=== PATIENT | female | born 2000 | race Caucasian/White ===

== ENCOUNTER → 2021-09-21 10:26 | Outpatient (BNVA) | payer OTHER, SELFPAY | PROVIDERS: Family Provider Nurse Practitioner; PCP Nurse Practitioner; Visit Provider Psychiatry & Neurology Psychiatry | DX: F33.1 Major depressive disorder, recurrent, moderate (principal); F41.1 Generalized anxiety disorder; Z79.899 Other long term (current) drug therapy; Z03.89 Encounter for observation for other suspected diseases and conditions ruled out | CPT/HCPCS: 90792; 80053; 80061; 83036; 84443; 85025 ==

== ENCOUNTER 2022-07-24 12:58 | Emergency (ER) | payer OTHER, SELFPAY ==
[2022-07-24 13:03] VITALS: BP 124/82; PULSE 86; RESP 16; TEMP 36.7; O2SAT 98; BMI 31.5
--- NOTE | 2022-07-24 13:17 | US_ITS ---
WS: [id number] EARLY OBSTETRICAL ULTRASOUND (<14 WEEKS). HISTORY: 5 weeks and bleeding COMPARISON: None available. Single intrauterine gestational sac is identified. Sac is along the inferior endometrium. This is an abnormal position. The sac appears smaller than expected for the gestation. [place]-rump length of 0.15 cm, less 6 weeks gestation. Gestational sac diameter corresponds to a of 6 weeks 0 days. C ardiac activity at 77 bpm. Normal size ovaries with no mass. No free fluid. US/US OB <=14 wk fetus w transvag IMPRESSION: 1. Single intrauterine gestation of 6 weeks 0 days based upon the gestational sac. [place]-rump length is less than 6 weeks and there is cardiac activity prese nt. 2. Abnormally positioned gestational sac is very low along the endometrial can al. Probably not viable in this location. Likely pending spontaneous .
--- NOTE | 2022-07-24 13:19 | ED_ITS ---
Documented by User: [email or web address] Drake 07/24/22 16:53 HPI - General: Chief complaint: Vaginal Bleeding Stated complaint: 4 weeks , bleeding Time Seen by Provider: 07/24/22 13:09 History of Present Illness: Patient is a G1, P0 4-week 22-year-old female comes to the ED with vaginal bleeding. Last menstrual period was June 10. Yesterday she started to have some light spotting and today the bleeding got heavier. She has bled through 1 pad in 1.5 to 2 hours. She has some occasional mild pelvic cramping pain that she describes as being mild. Denies any fevers, chills, nausea/vomiting, bladder or bowel symptoms. Associated symptoms: Deny abdominal pain, dysuria, headache(s), nausea or vo miting Review of Systems Const: Denies: fever(s), chills or fatigue Eyes: Denies: change in vision or eye discomfort ENMT: Denies: throat pain, odynophagia, nasal discharge or nasal congestion Card: Denies: chest pain, palpitations, edema, swelling of feet/ankles, dyspnea on exertion or orthopnea Resp: Denies: dyspnea, productive cough or non-productive cough GI: Denies: abdominal pain, nausea, vomiting, diarrhea, constipation or hematochezia : Reports: vaginal bleeding and pelvic pain (Cramping pain); Denies: flank pain, dysuria or hematuria Musc: Denies: neck pain, back pain or extremity swelling Skin/Breast: Denies: rash or new lesions Neuro: Denies: headache(s), numbness in extremities or weakness in extremities [facility] ED PFSH: Medical History Generalized anxiety disorder No pertinent family history Psychiatric care Physical Exam Const: COMMON NORMALS: no acute distress, patient oriented x3, healthy appearing and alert GENERAL APPEARANCE: cooperative and comfortable HENMT: COMMON NORMALS: normocephalic HEAD & SCALP: normocephalic MOUTH: Normal oral and palatal mucosa present THROAT: posterior oropharynx normal and uvula midline Neck/C-Spine: COMMON NORMALS: supple GENERAL: Yes normal visual inspection Resp: COMMON NORMALS: normal respiratory effort, No retractions, No use of accessory muscles and clear to auscultation bilaterally AUSCULTATION: clear t o auscultation bilaterally Cardio: COMMON NORMALS: regular rate, regular rhythm, S1 normal heart sound present, S2 normal heart sound present, No gallops present (Cardio), No clicks present (Cardio), No murmurs present (Cardio) and Peripheral pulses 2+ throughout RATE: regular rate RHYTHM: regular rhythm HEART SOUNDS: S1 normal heart sound present and S2 normal heart sound present PERIPHERAL PULSES: Peripheral pulses 2+ throughout GI: COMMON NORMALS: Normal to inspection, nondistended, normoactive bowel sounds present, Soft to palpation and no masses PALPATION: Yes Soft to palpation and Yes Tenderness to palpation present (GI) (Mild bilateral lower abdominal tenderness) Details: LLQ and RLQ : COMMON NORMALS: Yes no CVA tenderness BLADDER/KIDNEY EXAM: Yes no CVA tenderness Back/Pelvis: COMMON NORMALS: no CVA tenderness Extremity: COMMON NORMALS: normal to inspection Neuro: COMMON NORMALS: patient oriented x3 SENSORIUM/ORIENTATION: Yes alert GAIT: Yes Normal gait present Skin: GENERAL SKIN EXAM: dry skin Course Consultations: Consultation #1: I contacted Dr. Mathew and told her about patient case and ultrasound report. She said patient likely is having an impending spontaneous miscarriage and at this point no intervention needed. She can follow-up with OB provider in the next 1 to 2 days for reevaluation. She said patient can return to the ED if she has bleeding through her 2 pads an hour. Time: 15:58 Vital Signs: Vital signs: Vital Signs Temperature 98.1 F 07/24/22 13:03 Pulse Rate 97 07/24/22 16:13 Respiratory Rate 16 07/24/22 13:03 Blood Pressure 131/91 07/24/22 16:13 Pulse Oximetry 98 07/24/22 16:13 Oxygen Delivery Me thod 07/24/22 14:05 MDM - OB/Uterine Contractions Medical Decision Making Patient is a G1, P0 4-week 22-year-old female comes to the ED with vaginal bleeding. Last menstrual period was June 10. Yesterday she started to have some light spotting and today the bleeding got heavier. She has bled through 1 pad in 1.5 to 2 hours. She has some occasional mild pelvic cramping pain that she describes as being mild. Denies any fevers, chills, nausea/vomiting, bladder or bowel symptoms. Vitals are stable. Exam of patient is benign and she appears nontoxic in no acute distress or pain. CBC, CMP and UA were unremarkable. Beta-hCG was 754. OB ultrasound showed a 6 week gestation single intrauterine . The positioning of the gestational sac was very low and along the endometrial canal. Cervix was closed. Report noted likely impending spontaneous . I contacted Dr. Mathew about patient case and told her about the ultrasound report. She said patient likely is having an impending spontaneous miscarriage and at this point no intervention needed. She can follow-up with OB provider in the next 1 to 2 days for reevaluation. She said patient can return to the ED if she has bleeding through her 2 pads an hour. She is stable for discharge home and diagnosed with a threatened miscarriage. Patient is going to call OB provider get an appointment set up with them in the next 2 to 3 days for reevaluation. She was given strict return to ED precautions. Patient understood and agreed with plan. Lab Data I reviewed the patient's lab results. : 07/24/22 14:45 07/24/22 14:45 Radiology Impressions Obstetrics Ultrasound 07/24/22 13:17 IMPRESSION: 1. Single intrauterine gestation of 6 weeks 0 days based upon the gestational sac. [place]-rump length is less than 6 weeks and there is cardiac activity present. 2. Abnormally positioned gestational sac is very low along the endometrial canal. Probably not viable in this location. Likely pending spontaneous . Laboratory Results WBC 9.5 10^3/uL (4.0-10.0) 07/24/22 14:45 RBC 4.83 10^6/uL (4.1-5.3) 07/24/22 14:45 Hgb 12.9 g/dL (11.5-15.3) 07/24/22 14:45 Hct 41.1 % (37.0-47.0) 07/24/22 14:45 MCV 85.1 fl (81-99) 07/24/22 14:45 MCH 26.7 pg (28.0-34.0) L 07/24/22 14:45 MCHC 31.4 g/dL (30.0-36.0) 07/24/22 14:45 RDW 14.6 % (12.1-15.1) 07/24/22 14:45 Plt Count 372 10^3/cmm (130-400) 07/24/22 14:45 MPV 8.3 fL (7.4-10.4) 07/24/22 14:45 Neut % (Auto) 73.8 % 07/24/22 14:45 Lymph % (Auto) 19.4 % 07/24/22 14:45 [place] % (Auto) 5.2 % 07/24/22 14:45 Eos % (Auto) 0.8 % 07/24/22 14:45 Baso % (Auto) 0.2 % 07/24/22 14:45 Neut # (Auto) 7.00 10^3/uL (1.8-7.7) 07/24/22 14:45 Lymph # (Auto) 1.8 10^3/uL (0.8-4.8) 07/24/22 14:45 Frontier # (Auto) 0.5 10^3/uL (0.2-0.9) 07/24/22 14:45 Eos # (Auto) 0.1 10^3/uL (0.0-0.8) 07/24/22 14:45 Baso # (Auto) 0.0 10^3/uL (0.0-0.1) 07/24/22 14:45 Nucleated RBC % (auto) 0 % 07/24/22 14:45 Nucleated RBCs # 0.0 /100WBC 07/24/22 14:45 Sodium 138 mmol/L (136-145) 07/24/22 14:45 Potassium 4.2 mmol/L (3.5-5.1) 07/24/22 14:45 Chloride 100 mmol/L (98-107) 07/24/22 14:45 Carbon Dioxide 25 mmol/L (22-29) 07/24/22 14:45 Anion Gap 17.2 (5-19) 07/24/22 14:45 BUN 9 mg/dL (6-20) 07/24/22 14:45 Creatinine 0.7 mg/dL (0.5-0.9) 07/24/22 14:45 GFR Calculation 104.6 mL/min (90-130) 07/24/22 14:45 Glucose 84 mg/dL (65-115) 07/24/22 14:45 Calculated Osmolality 284 mOsm/kg (285-295) L 07/24/22 14:45 Calcium 10.1 mg/dL (8.5-10.5) 07/24/22 14:45 Total Bilirubin 0.2 mg/dL (0.15-1.2) 07/24/22 14:45 AST 23 U/L (0-32) 07/24/22 14:45 ALT 19 U/L (0-33) 07/24/22 14:45 Alkaline Phosphatase 127 U/L (35-105) H 07/24/22 14:45 Total Protein 7.7 g/dL (6.6-8.7) 07/24/22 14:45 Albumin 4.6 g/dL (3.5-5.2) 07/24/22 14:45 Globulin 3.1 g/dL (1.3-4.6) 07/24/22 14:45 Ser , Semi-Qnt 754.20 mIU/mL 07/24/22 14:45 Urine Color Red (Yellow) 07/24/22 15:05 Urine Appearance Clear (CLEAR) 07/24/22 15:05 Urine pH 5 (5-7) 07/24/22 15:05 Ur Specific [place] 1.005 (1.005-1.030) 07/24/22 15:05 Urine Protein Trace (Negative) 07/24/22 15:05 Urine Glucose (UA) Norm (Normal) 07/24/22 15:05 Urine Ketones 1+ (Negative) H 07/24/22 15:05 Urine Blood 3+ (Negative) H 07/24/22 15:05 Urine Nitrate Negative (Negative) 07/24/22 15:05 Urine Bilirubin Neg (Negative) 07/24/22 15:05 Urine Urobilinogen Norm mg/dL (Negative) 07/24/22 15:05 Ur Leukocyte Esterase Negative (Negative) 07/24/22 15:05 Urine RBC 25-40 /hpf (0-2) H 07/24/22 15:05 Urine WBC 0-4 /hpf (0-5) H 07/24/22 15:05 Ur Squamous Epith Cells 0-4 /hpf (0-5) H 07/24/22 15:05 Amorphous Sediment Not Reportable 07/24/22 15:05 Urine Bacteria None /hpf (NONE) 07/24/22 15:05 Blood Type O Positive 07/24/22 14:45 Rho(D) Type Positive 07/24/22 14:45 Discharge Plan Discharge Patient Disposition: Home Clinical Impression: Threatened miscarriage Condition: Stable Prescriptions: No Action 28-800 mg-mcg Tablet 1 tab PO DAILY Discharge Orders: Discharge ED (Routine); Ordered 07/24/22 Ordered By: Ramses Kaur Referrals: Mary Vegas, [facility] [Primary Care Provider] - Discharge Diet: Regular Discharge Activity: Limit activity as instructed Patient Instructions: Threatened Miscarriage (ED) Activity Restrictions/Additional Instructions: Follow-up with medical provider as directed. Follow-up with OB provider within the next 2 to 3 days for reevaluation. Take [id number] Tylenol for pain. Bed rest, no heavy lifting and no sex until cleared by OB provider. return to the ER or your medical provider if condition worsens, bleeding through 2 pads in 1 to 2 hours, fevers or nausea and vomiting. Please read and understand discharge instructions. Thank you for choosing [facility] for your healthcare needs today. Please realize this is an emergency room and that we are providing you with a medical screening exam and this may not be complete and all inclusive of all the testing and or work up that you may need to determine your ailment or severity of your illness. It is very important that you follow up as instructed or that you return to the Emergency Department should you have concerns or if your condition changes or worsens in any way. Stand Alone Forms: Work/School Release Coding Level of Care Code ED [employer] Middleware Developer for Chg Fwd Exam Comprehensive Documented by User: Selvin Kyle DO 07/24/22 17:19 HPI - General: Chief complaint: Vaginal Bleeding Stated complaint: 4 weeks , bleeding Time Seen by Provider: 07/24/22 13:09 [facility] ED PFSH: Medical History Generalized anxiety disorder No pertinent family history Psychiatric care Course Vital Signs: Vital signs: Vital Signs Temperature 98.1 F 11/16/22 13:03 Pulse Rate 97 07/24/22 16:13 Respiratory Rate 16 07/24/22 13:03 Blood Pressure 131/91 07/24/22 16:13 Pulse Oximetry 98 07/24/22 16:13 Oxygen Delivery Me thod 07/24/22 14:05 MDM - OB/Uterine Contractions Medical Decision Making Patient is a G1, P0 4-week 22-year-old female comes to the ED with vaginal bleeding. Last menstrual period was June 10. Yesterday she started to have some light spotting and today the bleeding got heavier. She has bled through 1 pad in 1.5 to 2 hours. She has some occasional mild pelvic cramping pain that she describes as being mild. Denies any fevers, chills, nausea/vomiting, bladder or bowel symptoms. Vitals are stable. Exam of patient is benign and she appears nontoxic in no acute distress or pain. CBC, CMP and UA were unremarkable. Beta-hCG was 754. OB ultrasound showed a 6 week gestati on single intrauterine . The positioning of the gestational sac was very low and along the endometrial canal. Cervix was closed. Report noted likely impending spontaneous . I contacted Dr. Mathew about patient case and told her about the ultrasound report. She said patient likely is having an impending spontaneous miscarriage and at this point no intervention needed. She can follow-up with OB provider in the next 1 to 2 days for reevaluation. She said patient can return to the ED if she has bleeding through her 2 pads an hour. She is stable for discharge home and diagnosed with a threatened miscarriage. Patient is going to call OB provider get an appointment set up with them in the next 2 to 3 days for reevaluation. She was given strict return to ED precautions. Patient understood and agreed with plan. Chart reviewed and patient discussed with midlevel. Agree with assessment and plan. Lab Data : 07/24/22 14:45 07/24/22 14:45 Radiology Impressions Obstetrics Ultrasound 07/24/22 13:17 IMPRESSION: 1. Single intrauterine gestation of 6 weeks 0 days based upon the gestational sac. [place]-rump length is less than 6 weeks and there is cardiac activity present. 2. Abnormally positioned gestational sac is very low along the endometrial canal. Probably not viable in this location. Likely pending spontaneous . Laboratory Results WBC 9.5 10^3/uL (4.0-10.0) 07/24/22 14:45 RBC 4.83 10^6/uL (4.1-5.3) 07/24/22 14:45 Hgb 12.9 g/dL (11.5-15.3) 07/24/22 14:45 Hct 41.1 % (37.0-47.0) 07/24/22 14:45 MCV 85.1 fl (81-99) 07/24/22 14:45 MCH 26.7 pg (28.0-34.0) L 07/24/22 14:45 MCHC 31.4 g/dL (30.0-36.0) 07/24/22 14:45 RDW 14.6 % (12.1-15.1) 07/24/22 14:45 Plt Count 372 10^3/cmm (130-400) 07/24/22 14:45 MPV 8.3 fL (7.4-10.4) 07/24/22 14:45 Neut % (Auto) 73.8 % 07/24/22 14:45 Lymph % (Auto) 19.4 % 07/24/22 14:45 [place] % (Auto) 5.2 % 07/24/22 14:45 Eos % (Auto) 0.8 % 07/24/22 14:45 Baso % (Auto) 0.2 % 07/24/22 14:45 Neut # (Auto) 7.00 10^3/uL (1.8-7.7) 07/24/22 14:45 Lymph # (Auto) 1.8 10^3/uL (0.8-4.8) 07/24/22 14:45 Frontier # (Auto) 0.5 10^3/uL (0.2-0.9) 07/24/22 14:45 Eos # (Auto) 0.1 10^3/uL (0.0-0.8) 07/24/22 14:45 Baso # (Auto) 0.0 10^3/uL (0.0-0.1) 07/24/22 14:45 Nucleated RBC % (auto) 0 % 07/24/22 14:45 Nucleated RBCs # 0.0 /100WBC 07/24/22 14:45 Sodium 138 mmol/L (136-145) 07/24/22 14:45 Potassium 4.2 mmol/L (3.5-5.1) 07/24/22 14:45 Chloride 100 mmol/L (98-107) 07/24/22 14:45 Carbon Dioxide 25 mmol/L (22-29) 07/24/22 14:45 Anion Gap 17.2 (5-19) 07/24/22 14:45 BUN 9 mg/dL (6-20) 07/24/22 14:45 Creatinine 0.7 mg/dL (0.5-0.9) 07/24/22 14:45 GFR Calculation 104.6 mL/min (90-130) 07/24/22 14:45 Glucose 84 mg/dL (65-115) 07/24/22 14:45 Calculated Osmolality 284 mOsm/kg (285-295) L 07/24/22 14:45 Calcium 10.1 mg/dL (8.5-10.5) 07/24/22 14:45 Total Bilirubin 0.2 mg/dL (0.15-1.2) 07/24/22 14:45 AST 23 U/L (0-32) 07/24/22 14:45 ALT 19 U/L (0-33) 07/24/22 14:45 Alkaline Phosphatase 127 U/L (35-105) H 07/24/22 14:45 Total Protein 7.7 g/dL (6.6-8.7) 07/24/22 14:45 Albumin 4.6 g/dL (3.5-5.2) 07/24/22 14:45 Globulin 3.1 g/dL (1.3-4.6) 07/24/22 14:45 Ser , Semi-Qnt 754.20 mIU/mL 07/24/22 14:45 Urine Color Red (Yellow) 07/24/22 15:05 Urine Appearance Clear (CLEAR) 07/24/22 15:05 Urine pH 5 (5-7) 07/24/22 15:05 Ur Specific [place] 1.005 (1.005-1.030) 07/24/22 15:05 Urine Protein Trace (Negative) 07/24/22 15:05 Urine Glucose (UA) Norm (Normal) 07/24/22 15:05 Urine Ketones 1+ (Negative) H 07/24/22 15:05 Urine Blood 3+ (Negative) H 07/24/22 15:05 Urine Nitrate Negative (Negative) 07/24/22 15:05 Urine Bilirubin Neg (Negative) 07/24/22 15:05 Urine Urobilinogen Norm mg/dL (Negative) 07/24/22 15:05 Ur Leukocyte Esterase Negative (Negative) 07/24/22 15:05 Urine RBC 25-40 /hpf (0-2) H 07/24/22 15:05 Urine WBC 0-4 /hpf (0-5) H 07/24/22 15:05 Ur Squamous Epith Cells 0-4 /hpf (0-5) H 07/24/22 15:05 Amorphous Sediment Not Reportable 07/24/22 15:05 Urine Bacteria None /hpf (NONE) 07/24/22 15:05 Blood Type O Positive 07/24/22 14:45 Rho(D) Type Positive 07/24/22 14:45 Discharge Plan Discharge Patient Disposition: Home Clinical Impression: Threatened miscarriage Condition: Stable Prescriptions: No Action 28-800 mg-mcg Tablet 1 tab PO DAILY Discharge Orders: Discharge ED (Routine); Ordered 07/24/22 Ordered By: Ramses Kaur Referrals: Mary Vegas, [facility] [Primary Care Provider] - Discharge Diet: Regular Discharge Activity: Limit activity as instructed Patient Instructions: Threatened Miscarriage (ED) Activity Restrictions/Additional Instructions: Follow-up with medical provider as directed. Follow-up with OB provider within the next 2 to 3 days for reevaluation. Take [id number] Tylenol for pain. Bed rest, no heavy lifting and no sex until cleared by OB provider. return to the ER or your medical provider if condition worsens, bleeding through 2 pads in 1 to 2 hours, fevers or nausea and vomiting. Please read and understand discharge instructions. Thank you for choosing [facility] for your healthcare needs today. Please realize this is an emergency room and that we are providing you with a medical screening exam and this may not be complete and all inclusive of all the testing and or work up that you may need to determine your ailment or severity of your illness. It is very important that you follow up as instructed or that you return to the Emergency Department should you have concerns or if your condition changes or worsens in any way. Stand Alone Forms: Work/School Release Coding Level of Care Code ED [employer] Middleware Developer for Chg Fwd Exam Comprehensive
[2022-07-24 14:05] VITALS: BP 119/79; O2SAT 100
[2022-07-24 15:02] LABS: Basophils % 0.2 %; Eosinophils # 0.1 10^3/uL (0.0-0.8); Eosinophils % 0.8 %; Hematocrit 41.1 % (37.0-47.0); Hemoglobin 12.9 g/dL (11.5-15.3); Lymphocytes # 1.8 10^3/uL (0.8-4.8); Lymphocytes % 19.4 %; Mean Corpuscular HGB Conc 31.4 g/dL (30.0-36.0); Mean Corpuscular Hemoglobin 26.7 pg (28.0-34.0); Mean Corpuscular Volume 85.1 fl (81-99); Mean Platelet Volume 8.3 fL (7.4-10.4); Monocytes # 0.5 10^3/uL (0.2-0.9); Monocytes % 5.2 %; Neutrophils % 73.8 %; Nucleated Red Blood Cells % 0 %; Platelet Count 372 10^3/cmm (130-400); Red Blood Count 4.83 10^6/uL (4.1-5.3); Red Cell Distribution Width 14.6 % (12.1-15.1); White Blood Count 9.5 10^3/uL (4.0-10.0)
[2022-07-24 15:15] LABS: Bilirubin Urine Neg (Negative); Blood Urine 3+ (Negative); Glucose Urine UA Norm (Normal); Ketones Urine 1+ (Negative); Leukocyte Esterase Urine Negative (Negative); Nitrate Urine Negative (Negative); Protein Urine Trace (Negative); Specific Gravity, Urine 1.005 (1.005-1.030); Urine Appearance Clear (CLEAR); Urine Color Red (Yellow); Urobilinogen Urine Norm (Negative); pH Urine 5 (5-7)
[2022-07-24 15:16] LABS: Add Urine Microscopic? YES
[2022-07-24 15:20] LABS: Add Urine Culture? Yes; RBC Urine 25-40 /hpf (0-2); Squamous Epithelial Cell Urine 0-4 /hpf (0-5); WBC Urine 0-4 /hpf (0-5)
[2022-07-24 15:30] LABS: Alanine Aminotransferase 19 U/L (0-33); Albumin Level 4.6 g/dL (3.5-5.2); Alkaline Phosphatase 127 U/L (35-105); Anion Gap 17.2 (5-19); Aspartate Amino Transferase 23 U/L (0-32); Blood Urea Nitrogen 9 mg/dL (6-20); Calcium 10.1 mg/dL (8.5-10.5); Carbon Dioxide 25 mmol/L (22-29); Chloride 100 mmol/L (98-107); Globulin 3.1 g/dL (1.3-4.6); Glomerular Filtration Rate 104.6 mL/min (90-130); Glucose 84 mg/dL (65-115); Osmolality Calculated 284 mOsm/kg (285-295); Potassium 4.2 mmol/L (3.5-5.1); Sodium 138 mmol/L (136-145); Total Bilirubin 0.2 mg/dL (0.15-1.2); Total Protein 7.7 g/dL (6.6-8.7)
[2022-07-24 16:13] VITALS: BP 131/91; PULSE 97; O2SAT 98
== END 2022-07-24 16:10 | disposition home or self-care (01) ==
PROVIDERS: Emergency Provider Physician Assistant; PCP Nurse Practitioner
DX: O20.0 Threatened abortion (principal); Z3A.01 Less than 8 weeks gestation of pregnancy
CPT/HCPCS: 36415; 76801; 76817; 80053; 81001; 84702; 85025; 86900; 99284

== ENCOUNTER → 2023-09-24 15:08 | Outpatient (BNVA) | payer MEDICAID, SELFPAY | PROVIDERS: PCP Nurse Practitioner; Visit Provider Nurse Practitioner | DX: F41.1 Generalized anxiety disorder (principal) | CPT/HCPCS: 80053; 82607; 84443; 85025 ==